=== PATIENT | female | born 1990 | race Caucasian/White ===

== ENCOUNTER → 2017-05-11 | Outpatient (CLI) | payer BC, MEDICAID ==
--- NOTE | 2017-05-13 15:52 | RADIOLOGY REPORT (SQ) ---
EXAM DESCRIPTION: MRI HEAD COMBO COMPLETED DATE/TIME: 05/11/2017 7:52 pm REASON FOR STUDY: MULTIPLE SCLEROSIS G35 MULTIPLE SCLEROSIS COMPARISON: 01/19/2016 TECHNIQUE: Multiplanar imaging includes noncontrasted T1, T2, FLAIR, diffusion with ADC map and post gadolinium contrast T1 sequences. Images stored on PACS. CONTRAST TYPE AND DOSE: 10 mL Prohance. RENAL FUNCTION: None required. The patient is less than 50 years old. LIMITATIONS: None. FINDINGS: ANATOMY: No anomalies. Normal vascular flow voids. Pituitary fossa normal. CSF SPACES: Normal in size and contour. No hemorrhage. CEREBRUM: No evidence for atrophy. Focal areas of high signal intensity on FLAIR imaging right front al lobe and in the corpus callosum. Stable in appearance since the previous study. No enhancement. No findings in the left cerebral hemisphere. POSTERIOR FOSSA: No signal alteration. No hemorrhage. No edema, masses, or mass effect. Internal miki tory canals, cerebellopontine angles, mastoids normal. No enhancing lesions. No abnormal enhancement post contrast. DIFFUSION IMAGING: Negative for acute or subacute infarction. ORBITS: No masses. Globes normal. PARANASAL SINUSES: No fluid levels. Mucosa normal. OTHER: No other significant finding. IMPRESSION: Stable appearance over white matter changes in the right frontal lobe and corpus callosu m in a patient with the clinical diagnosis of multiple sclerosis. No enhancement. No progression. EVIDENCE OF ACUTE STROKE: NO. TECHNICAL DOCUMENTATION: JOB ID: [id number] [employer]- All Rights Reserved
== END ==
LOC: RAD 18:58
PROVIDERS: ATTEND Specialist
DX: G35 Multiple sclerosis (principal)
CPT/HCPCS: 70553; A9577

== ENCOUNTER 2018-09-02 15:23 | Emergency (ER) | payer BC ==
[2018-09-02 15:32] VITALS: BP 110/69
[2018-09-02] MEDS ORDERED: PENICILLIN V POTASSIUM 500 MG TABLET PO ONE (16:25)
--- NOTE | 2018-09-02 16:27 | ER Document Report ---
ED General - General Chief Complaint: Toothache Stated Complaint: TOOTH PAIN Time Seen by Provider: 09/02/18 16:25 Primary Care Provider: [facility] [Outside] - 09/09/18 ALETHA PITTS MD [Primary Care Provider] - Follow up as needed Mode of Arrival: Ambulatory Information source: Patient Notes: 28-year-old female presents with bilateral upper tooth pain that started 10 days prior to arrival. Patient states that she has been using baking soda and see salt for pain. She states that she has been taking amoxicillin without relief. She did go to the [facility] today and was told to present on Sunday 1 week from today at 7:30 AM for dental care. Patient states that she has had a dental fracture for some time. She denies any fever, chills, nausea, vomiting. TRAVEL OUTSIDE OF THE [place] IN LAST 30 DAYS: No - HPI Onset: Other Onset/Duration: Persistent Quality of pain: Throbbing Severity: Moderate Associated symptoms: denies: Body/muscle aches, Fever, Nausea, Vomiting Exacerbated by: Denies Relieved by: Other - C salt and baking soda Similar symptoms previously: Yes Recently seen / treated by doctor: No - Related Data Allergies/Adverse Reactions: cefaclor [From Ceclor] Allergy (Severe, Verified 01/19/16 15:19) rash Sulfa (Sulfonamide Antibiotics) Allergy (Verified 09/02/18 15:29) Past Medical History - General Information source: Patient, [facility] Records - Social History Smoking Status: Current Every Day Smoker Cigarette use (# per day): Yes - 10 Smoking Education Provided: Yes - Smoking cessation counseling was provided for 4 minutes at the bedside Frequency of alcohol use: None Drug Abuse: Other Lives with: Family Family History: Other - family hx of kidney stones Patient has suicidal ideation: No Patient has homicidal ideation: No - Past Medical History Cardiac Medical History: Denies: Hx Coronary Artery Disease, Hx Heart Attack, Hx Hypertension Pulmonary Medical History: Denies: Hx Asthma, Hx Bronchitis, Hx COPD, Hx Pneumonia Neurological Medical History: Denies: Hx Cerebrovascular Accident, Hx Seizures Renal/ Medical History: Reports: Hx Ovarian Cysts. Denies: Hx Peritoneal Dialysis Musculoskeletal Medical History: Denies Hx Arthritis Past Surgical History: Reports: Hx Breast Surgery - augmention, Hx Gynecologic Surgery - endometrosis - Immunizations Hx Diphtheria, Pertussis, Tetanus Vaccination: Yes Review of Systems - Review of Systems Notes: REVIEW OF SYSTEMS: CONSTITUTIONAL : Denies fever, chills, or sweats. Denies recent illness. Denies weight loss, recent hospitalizations. EENT: Denies visual changes, eye pain. Denies sore throat, oral lesions, difficulty swallowing. CARDIOVASCULAR: Denies chest pain. Denies palpitations. Denies lower extremity edema. RESPIRATORY: Denies cough. Denies shortness of breath, wheezing. GASTROINTESTINAL: Denies abdominal pain or distention. Denies nausea, v omiting, or diarrhea. Denies blood in vomitus, stools, or per rectum. Denies black, tarry stools. Denies constipation. GENITOURINARY: Denies difficulty urinating, painful urination, frequency, blood in urine, or vaginal discharge. MUSCULOSKELETAL: Denies back or neck pain or stiffness. Denies joint pain or swelling. SKIN: Denies rash, lesions or sores. HEMATOLOGIC : Denies easy bruising or bleeding. LYMPHATIC: Denies swollen glands. NEUROLOGICAL: Denies confusion or altered mental status. Denies loss of consciousness. Denies dizziness or lightheadedness. Denies headache. Denies weakness or paralysis. Denies problems difficulty with ambulation, slurred speech. Denies sensory loss, numbness, or tingling. Denies seizures. PSYCHIATRIC: Denies anxiety or stress. Denies depression, suicidal ideation, or homicidal ideation. Denies visual or auditory hallucinations. Physical Exam - Vital signs Vitals: Temp Pulse Resp BP Pulse Ox 98.0 F 99 16 110/69 98 09/02/18 15:31 09/02/18 15:31 09/02/18 15:31 09/02/18 15:31 09/02/18 15:31 - Notes Notes: PHYSICAL EXAMINATION: GENERAL: Well-appearing, well-nourished and in no acute distress. HEAD: Atraumatic, normocephalic. EYES: Pupils equal round and reactive to light, extraocular movements intact, conjunctiva are normal. ENT: Nares patent, oropharynx clear without exudates. Moist mucous membranes. Multiple dental caries, multiple dental fractures without pulp exposure. No associated dental abscess. NECK: Normal range of motion, supple without lymphadenopathy LUNGS: Breath sounds clear to auscultation bilaterally and equal. No wheezes rales or rhonchi. HEART: Regular rate and rhythm without murmurs ABDOMEN: Soft, nontender, nondistended abdomen. No guarding, no rebound. No masses appreciated. Female : deferred Musculoskeletal: Normal range of motion, no pitting or edema. No cyanosis. NEUROLOGICAL: Cranial nerves grossly intact. Normal speech, normal gait. Normal sensory, motor exams PSYCH: Normal mood, normal affect. SKIN: Warm, Dry, normal turgor, no rashes or lesions noted. Course - Re-evaluation Re-evalutation: Temp Pulse Resp BP Pulse Ox 98.0 F 99 16 110/69 98 09/02/18 15:31 09/02/18 15:31 09/02/18 15:31 09/02/18 15:31 09/02/18 15:09/02/18 16:31 28-year-old female presents with 10 days of upper tooth pain bilaterally left greater than right. Patient has been using sea salt and baking soda for pain. She did take some old amoxicillin 3 days ago. She denies any fever, chills, nausea, vomiting. Patient does have poor dental hygiene, health. There is no associated dental abscess. She states that she would is going to the [facility] on Sunday the . Patient was prescribed penicillin VK in advised to use Motrin as needed for pain. Patient was evaluated and treated as appropriate for the patient's presenting symptoms and complaint, with consideration of any critical or life threatening conditions that may be associated with their obtained history and exam as noted above. All results were discussed with patient. Patient provided the opportunity to ask questions, and express concerns. Patient was educated on treatments based on their presumed diagnosis as noted above. At this time we will discharge the patient with return precautions and follow-up recommendations. Verbal discharge instructions given a the bedside. Medication warnings reviewed. Patient is in agreement with this plan and has verbalized understanding of return precautions. After careful consideration I feel that that patient can be safely discharged from the emergency department, they were advised to followup with a primary care physician in 2-3 days. Dictation on this chart was performed using voice recognition software and may result in unintended grammatical, spelling, syntax or errors. - Vital Signs Vital signs: Temp Pulse Resp BP Pulse Ox 98.0 F 99 16 110/69 98 09/02/18 15:31 09/02/18 15:31 09/02/18 15:31 09/02/18 15:31 09/02/18 15:31 Discharge - Discharge Clinical Impression: Pain, dental Condition: Good Disposition: HOME, SELF-CARE Instructions: [facility], Penicillin V K ([facility]), Toothache ([facility]) Additional Instructions: Please follow-up with the [facility] at 8 AM on September 09. Prescriptions: Penicillin V Potassium [Penicillin Vk 500 mg Tablet] 500 mg PO BID #20 tablet Forms: Smoking Cessation Education Referrals: ALETHA PITTS MD [Primary Care Provider] - Follow up as needed [facility] [Outside] - 09/09/18
== END 2018-09-02 16:31 | disposition home or self-care (01) ==
LOC: ER 15:23
DX: K02.9 Dental caries, unspecified (principal); K08.89 Other specified disorders of teeth and supporting structures; F17.210 Nicotine dependence, cigarettes, uncomplicated; Z71.6 Tobacco abuse counseling; Z88.1 Allergy status to other antibiotic agents; Z88.2 Allergy status to sulfonamides
CPT/HCPCS: 99282; 99406

== ENCOUNTER → 2018-09-25 | Outpatient (CLI) | payer BC ==
--- NOTE | 2018-09-25 16:56 | RADIOLOGY REPORT (SQ) ---
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 Images stored on PACS. CONTRAST TYPE AND DOSE: 10 mL Dotarem. RENAL FUNCTION: Not indicated. ACR Type II contrast agent associated with few, if any, unconfounded cases of NSF LIMITATIONS: None. FINDINGS: ANATOMY: No developmental anomalies. Normal vascular flow voids. Pituitary fossa normal. CSF SPACES: Normal in size and contour. No hemorrhage. CEREBRUM: Stable foci of increased FLAIR/ T2 deep periventricular white matter signal along the right frontal subcortical parasagittal white matter, right frontal deep periventricular white matter, bipa rietal deep periventricular white matter in characteristic locations for demyelinating disease. This is stable compared to 05/11/2017, and 01/19/2016. No new brain parenchymal signal abnormalities worrisome for active demyelinating disease. No MR sign al abnormalities worrisome for acute ischemic change, acute intracranial hemorrhage mass effect or mi dline shift. No abnormal brain parenchymal or dural enhancement. POSTERIOR FOSSA: No signal alteration. No hemorrhage. No edema, masses, or mass effect. Internal miki tory canals, cerebellopontine angles, mastoids normal. No enhancing lesions. No abnormal enhancement post contrast. DIFFUSION IMAGING: Negative for acute or subacute infarction. ORBITS: No masses. Globes normal. PARANASAL SINUSES: No fluid levels. Mucosa normal. OTHER: No other significant finding. IMPRESSION: Stable white matter lesions as compared to previous exams. No new findings. EVIDENCE OF ACUTE STROKE: NO. TECHNICAL DOCUMENTATION: JOB ID: [id number] [employer]- All Rights Reserved Reading location - IP/workstation name: [email or web address]
== END ==
LOC: RAD 15:39
PROVIDERS: ATTEND Pathology Neuropathology
DX: G37.9 Demyelinating disease of central nervous system, unspecified (principal)
CPT/HCPCS: 70553; A9576